=== PATIENT | male | born 1950 | race Caucasian/White ===

== ENCOUNTER 2017-06-11 10:18 | Day surgery (SDC) | payer MEDICARE ==
[2017-06-10 15:40] VITALS: BMI 22.0
[2017-06-11] MEDS ORDERED: Heparin 5,000 UNITS/ML VIAL ONE (10:50)
[2017-06-11] MEDS ORDERED: Lidocaine 2% w/Epinephrine 1:200K 20 ML VIAL ONE (10:50)
[2017-06-11] MEDS ORDERED: Bupivacaine 0.25% HCL 30 ML VIAL ONE (10:50)
[2017-06-11] MEDS ORDERED: Protamine Sulfate 50 MG/5 ML VIAL ONE (10:50)
[2017-06-11 11:22] LABS: #Eosinphils 0.1 thou/uL (0.0-0.7); #Lymphocytes 0.7 thou/uL (1.20-3.40); #Monocytes 0.3 thou/uL (0.11-0.59); %Basophils 0.8 % (0.0-1.0); %Eosinophils 2.6 % (0.0-10.0); %Lymphocytes 13.5 % (21.0-51.0); %Monocytes 6.5 % (0.0-10.0); %Neutrophils 76.6 % (42.0-75.0); Hemoglobin 10.1 g/dL (14.0-18.0); Mean Corpuscular HGB CONC 32.2 g/dL (32.0-36.0); Mean Corpuscular Hemoglobin 32.8 pg (27.0-31.0); Mean Platelet Volume 7.9 fL (7.4-10.4); Platelet Count 108 thou/uL (130-400); RBC Distribution Width 16.4 % (11.5-14.5); Red Blood Cell (RBC) Count 3.09 mill/uL (4.70-6.10); White Blood Cell (WBC) Count 5.2 thou/uL (4.8-10.8)
[2017-06-11] MEDS ORDERED: Sodium Chloride 0.9% 20 ML ONE (11:26)
[2017-06-11 11:46] LABS: Anion Gap 17 mmol/L (10-20); BUN (Urea Nitrogen) 40 mg/dL (8.4-25.7); Calc. Creatinine Clearance 10 mL/min (70-130); Carbon Dioxide 23 mmol/L (23-31); Chloride 91 mmol/L (98-107); Estimated GFR-MDRD 7; Glucose 516 mg/dL (80-115); Potassium 4.2 mmol/L (3.5-5.1); Sodium 127 mmol/L (136-145)
[2017-06-11] MEDS ORDERED: Heparin 10,000 UNITS/1 ML VIAL ONE (11:50)
[2017-06-11] MEDS ORDERED: Fentanyl 100 MCG/2 ML VIAL ONE (11:55)
[2017-06-11] MEDS ORDERED: Midazolam HCl 2 mg/2 ml Vial ONE (11:55)
[2017-06-11] MEDS ORDERED: CEFAZOLIN/Water 2 GM/20 ML SYRINGE ONE (11:59)
--- NOTE | 2017-06-11 13:56 | RAD ---
CHEST 1 VIEW: HISTORY: A 67-year-old male with a history of status post hemodialysis catheter placement. FINDINGS: Large-caliber left hemodialysis access catheter has been placed without pneumothorax. There is bilat eral vascular congestion with a moderate-sized left pleural effusion and minimal cardiomegaly. IMPRESSION: Left hemodialysis catheter without pneumothorax. Cardiomegaly with bilateral vascular congestion and moderate-sized left pleural effusion. POS: KATHY
--- NOTE | 2017-06-11 17:56 | PDOC.OP ---
Operative Note - Operative Note Operative Note: PROCEDURE: Placement of left internal jugular tunneled hemodialysis catheter with ultrasound and fluoroscopic guidance. SURGEON: Marlene Beebe M.D. DATE OF PROCEDURE: 06/11/2017 PREOPERATIVE DIAGNOSIS: Chronic renal failure. POSTOPERATIVE DIAGNOSIS: Chronic renal failure. 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 He has severe peripheral vascular disease so AV fistula has been deferred at this time due to the patient's severe comorbidities. 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 PROCEDURE: After informed consent was obtained and appropriate preoperative antibiotics were administered, the patient was taken to the Operating Room, placed in the supine position and monitored anesthesia care was administered. The neck and chest were prepped and draped in a standard sterile fashion and the patient placed in Trendelenburg position. A sterile ultrasound probe was used to identify the patent compressible right IJ vein which was accessed under direct ultrasound guidance. A wire was threaded but would not advance more than a few centimeters beyond the tip of the needle. Another attempt was made at a lower level with the same result. Therefore the decision was made to place a left internal jugular catheter. Using ultrasound guidance the left internal jugular vein was accessed with excellent flow of dark venous nonpulsatile blood. The wire was threaded through the needle and confirmed by ultrasound to be within the patent compressible vessel with the tip in the vena cava by fluoroscopy. Local anesthesia was infused to the skin and subcutaneous tissues of the left neck and chest. An infraclavicular incision was made and a catheter tunneled from the infraclavicular to the left IJ access site. The left IJ was sequentially dilated over the wire following which a dilator and sheath were placed over the wire and the dilator and wire removed leaving the sheath in place. The catheter was tunneled through the sheath which was then split and removed leaving the catheter in place. This was confirmed by fluoroscopy to be in good position in the superior vena cava with no kinking of the course of the catheter. Both ports easily aspirated dark venous nonpulsatile blood and easily flushed without resistance. Heparin was instilled to the quantity specified on the hub, and the hub was secured to the skin with 3-0 nylon sutures. The skin incision at the neck was closed in two layers with 4-0 Monocryl suture and Dermabond dressings were placed. The skin at the exit site was snugged up around the catheter with 4-0 Monocryl suture and Dermabond was placed there as well. Once the Dermabond was dry, a Biopatch and Tegaderm dressing was placed at the exit site. The patient was taken to Recovery in good condition. Estimated blood loss was minimal. There were no complications. There were no specimens.
== END 2017-06-11 14:20 | disposition home or self-care (01) ==
LOC: SDC 10:18
PROVIDERS: ATTEND Surgery
PROC: 05HN33Z Insertion of Infusion Device into Left Internal Jugular Vein, Percutaneous Approach (ICD-10-PCS; principal; 2017-06-11)
PROC: B514ZZA Fluoroscopy of Left Jugular Veins, Guidance (ICD-10-PCS; 2017-06-11)
PROC: B544ZZA Ultrasonography of Left Jugular Veins, Guidance (ICD-10-PCS; 2017-06-11)
DX: T82.858A Stenosis of other vascular prosthetic devices, implants and grafts, initial encounter (principal); E10.22 Type 1 diabetes mellitus with diabetic chronic kidney disease; I12.0 Hypertensive chronic kidney disease with stage 5 chronic kidney disease or end stage renal disease; N18.6 End stage renal disease; F17.210 Nicotine dependence, cigarettes, uncomplicated; I25.2 Old myocardial infarction; J44.9 Chronic obstructive pulmonary disease, unspecified; E10.51 Type 1 diabetes mellitus with diabetic peripheral angiopathy without gangrene; Z99.2 Dependence on renal dialysis; Z79.02 Long term (current) use of antithrombotics/antiplatelets; Z79.82 Long term (current) use of aspirin; Z79.899 Other long term (current) drug therapy; Z97.4 Presence of external hearing-aid; Z96.20 Presence of otological and audiological implant, unspecified; Z95.818 Presence of other cardiac implants and grafts; Z96.0 Presence of urogenital implants; Z95.828 Presence of other vascular implants and grafts; Z89.512 Acquired absence of left leg below knee; Z98.818 Other dental procedure status; Z98.890 Other specified postprocedural states; Z85.828 Personal history of other malignant neoplasm of skin
CPT/HCPCS: 36561; 71045; 80048; 85025; 93005; C1752; C1769; 36415; 93010; A4216; J1642; J1644; J2250; J2720; J3010; S0020